=== PATIENT | female | born 1985 | race Caucasian/White ===

== ENCOUNTER 2016-12-27 05:40 | Day surgery (SDC) | payer MEDICAID ==
[2016-12-26 10:45] LABS: BASOPHILS 0.5 % (0-2); EOSINOPHILS 4.4 % (0-7); HEMATOCRIT 43.5 % (36.0-48.0); HEMOGLOBIN 15.5 g/dL (12-16); IMMATURE GRANULOCYTES 0.1 % (0-5); LYMPHOCYTES 37.1 % (15-50); MCHC 35.6 g/dL (31.0-37.0); MCV 95.4 fL (80.0-100.0); MEAN PLATELET VOLUME 10.7 fL (7.4-10.4); MONOCYTES 10.6 % (2-11); NEUTROPHILS 47.3 % (40-80); PLATELET COUNT 173 10x3/uL (130-400); RBC 4.56 10x6/uL (4.00-5.40); RDW 11.8 % (11.5-14.5); WBC 7.8 10x3/uL (4.8-10.8)
[2016-12-26 11:03] LABS: CALC OSMOLALITY 279 mosm/kg (275-300); CALCIUM 9.4 mg/dL (8.5-10.1); CARBON DIOXIDE 26.9 mmol/L (21.0-32.0); CHLORIDE - SERUM 107 mmol/L (98-107); CREATININE - SERUM 0.9 mg/dL (0.6-1.3); GLUCOSE 102 mg/dL (74-106); POTASSIUM - SERUM 4.5 mmol/L (3.5-5.1); SODIUM 141 mmol/L (136-145); UREA NITROGEN 11 mg/dL (7-18); eGFR NON AFRICAN AMERICAN 78 mL/min (90-120)
[~2016-12-27] VITALS: Ht 167.6 cm; Wt 63.5 kg
--- NOTE | ~2016-12-27 | OP ---
PATIENT NAME: SAHIL FLORES MEDICAL RECORD: [id number] :86 LOCATION:D.OPS ADMISSION DATE: SURGEON: DAY WRIGHT MD DATE OF OPERATION: 12/27/2016 PREOPERATIVE DIAGNOSIS: High-grade cervical dysplasia. POSTOPERATIVE DIAGNOSIS: High-grade cervical dysplasia. PROCEDURE: Loop electrosurgical excision procedure. SURGEON: Day Wright MD. ANESTHESIA: General by LMA. INTRAVENOUS FLUIDS: Per anesthesia records. ESTIMATED BLOOD LOSS: Minimal. FINDINGS: 1. Grossly normal-appearing cervix. 2. Grossly normal-appearing external genitalia. SPECIMENS: Include cervical cone biopsy. PROCEDURE IN DETAIL: The patient was taken to the operating room where general anesthesia was achieved without difficulty. The patient was then prepped and draped in normal sterile fashion in the dorsal lithotomy position in the [facility]. After prepping the vagina, a red rubber catheter was used to drain approximately 20 cc of clear straw-colored urine from the bladder. At this point, an insulated speculum was placed in the vagina and the cervix was identified with ease. A loop electrode was used to remove approximately 1 cm cone biopsy from the cervix at the level of the transitional zone. The cervical crater was then cauterized using the ball tip and the coagulation setting with good hemostasis noted. Monsel solution was then placed on the cervical crater. The speculum was then removed. The patient tolerated the procedure well, transferred to postanesthesia recovery stable without incident. TRANSINT:[id number] Voice Confirmation ID: [id number] DOCUMENT ID: [id number] DAY WRIGHT MD CC: [id number] DICTATION DATE: 12/29/1643 EXCAVATING MACHINE OPERATOR: 12/29/16 1332 [facility] 12/27/16 [facility] [address] [id number]
[~2016-12-27 05:40] MED LIST: EFFEXOR XR150 MG PO
[2016-12-27 06:10] VITALS: BP 114/59; Ht 167.6 cm; Wt 63.5 kg
[2016-12-27 06:45] LABS: HCG URINE NEGATIVE (NEGATIVE)
== END 2016-12-27 10:00 | disposition home or self-care (01) ==
LOC: D.OPS 05:40 → D.PAN 07:30 → D.OPS 10:00
PROVIDERS: Obstetrics & Gynecology
DX: D06.0 Carcinoma in situ of endocervix (principal); N72 Inflammatory disease of cervix uteri; N88.8 Other specified noninflammatory disorders of cervix uteri; Z01.812 Encounter for preprocedural laboratory examination; I47.1 Supraventricular tachycardia; F17.200 Nicotine dependence, unspecified, uncomplicated; F32.9 Major depressive disorder, single episode, unspecified

== ENCOUNTER 2017-05-16 05:26 | Day surgery (SDC) | payer MEDICAID ==
[2017-05-15 13:17] LABS: BASOPHILS 0.4 % (0-2); EOSINOPHILS 1.3 % (0-7); HEMATOCRIT 47.1 % (36.0-48.0); HEMOGLOBIN 16.4 g/dL (12-16); IMMATURE GRANULOCYTES 0.4 % (0-5); LYMPHOCYTES 27.7 % (15-50); MCH 33.8 pg (26.0-34.0); MCHC 34.8 g/dL (31.0-37.0); MCV 97.1 fL (80.0-100.0); MEAN PLATELET VOLUME 10.1 fL (7.4-10.4); NEUTROPHILS 63.2 % (40-80); RBC 4.85 10x6/uL (4.00-5.40); RDW 12.2 % (11.5-14.5); WBC 12.7 10x3/uL (4.8-10.8)
[2017-05-15 13:18] LABS: PLATELET COUNT 220 10x3/uL (130-400)
[~2017-05-16 05:26] MED LIST changes: +TOPAMAX25 MG PO; +ULTRAM50 MG PO
[2017-05-16 06:19] VITALS: BP 115/73; BMI 23.3
[2017-05-16 06:26] LABS: HCG URINE NEGATIVE (NEGATIVE)
--- NOTE | 2017-05-16 10:14 | NUR ---
IV DC WITH CATHER TIP INTACT
--- NOTE | 2017-05-16 23:42 | OP ---
PATIENT NAME: SAHIL FLORES MEDICAL RECORD: [id number] :86 LOCATION:D.[facility] ADMISSION DATE: SURGEON: HAYDEE MARVIN MD DATE OF OPERATION: 05/16/2017 PREOPERATIVE DIAGNOSIS: Subacute pelvic pain. POSTOPERATIVE DIAGNOSIS: Hemorrhagic cyst. SURGEON: Haydee Marvin MD ANESTHESIA: Dr. Jones. General anesthetic with endotracheal intubation. PROCEDURES: 1. Diagnostic laparoscopy. 2. Right cystectomy. FINDINGS: A 3-cm hemorrhagic cyst. Evidence of rupture with hemoperitoneum present. Abdominal anatomy and the rest of the pelvic anatomy is unremarkable. SPECIMENS REMOVED: Not applicable. ESTIMATED BLOOD LOSS: Less than or equal to 50 cc. FLUIDS: 800 cc of lactated Ringer's. URINE OUTPUT: Quantity sufficient with cath prior to procedure. COMPLICATIONS: None. DRAINS: None. INDICATIONS: The patient is a 32-year-old female, who presents to clinic with intense lower pelvic pain after being seen in the Emergency Room. The patient has a nonacute abdomen, cervical motion tenderness, and identified pelvic mass. The patient was taken to the operating room for diagnostic laparoscopy and any indicated procedure. DESCRIPTION OF PROCEDURE: After informed consent was assured, the patient was taken to the operating room, where anesthetic was obtained. She is supine on the table, prepped and draped in the usual sterile fashion after emptying her bladder. Incision was made at the umbilicus to accommodate a 5-mm trocar, which was inserted without difficulty and pneumoperitoneum was developed. Accessory ports were then placed in the right lower quadrant and midline. Through the midline port, a blunt probe was inserted. Retroverted uterus is now lifted and the hemoperitoneum is removed with suction deputy general counsel. Left ovary and right ovary were inspected. The right ovary was grasped at the hilum, elevated and using a Bovie cautery with a monopolar hook, the cyst was opened and cyst contents removed. The edges of the cystotomy were cauterized. After the pelvis was again irrigated and all irrigant removed, inspection of the ovary reveals adequate hemostasis. The pneumoperitoneum was released as the accessory trocars were removed. The primary trocar was now removed. The skin was reapproximated with subcuticular stitch and sterile dressing applied. The patient was sent to the recovery room in a stable and good condition. OPERATIVE REPORT [id number] SAHIL FLORES TRANSINT:[id number] Voice Confirmation ID: [id number] DOCUMENT ID: [id number] HAYDEE MARVIN MD at 2342 CC: [id number] DICTATION DATE: 05/16/17819 NURSE SUBSTANCE ABUSE: 05/16/17 1023 [facility] [place] 05/16/17 [place] [id number] [place] [id number]
== END 2017-05-16 10:20 | disposition home or self-care (01) ==
LOC: D.OPS 05:26 → D.PAN 07:30 → D.OPS 07:30
PROVIDERS: Obstetrics & Gynecology
DX: N83.201 Unspecified ovarian cyst, right side (principal); N85.4 Malposition of uterus; Z01.812 Encounter for preprocedural laboratory examination

== ENCOUNTER 2017-08-30 06:37 | Day surgery (SDC) | payer MEDICAID ==
[2017-08-29 11:45] LABS: BASOPHILS 0.2 % (0-2); EOSINOPHILS 2.6 % (0-7); HEMATOCRIT 45.6 % (36.0-48.0); HEMOGLOBIN 16.1 g/dL (12-16); IMMATURE GRANULOCYTES 0.2 % (0-5); LYMPHOCYTES 29.1 % (15-50); MCH 33.9 pg (26.0-34.0); MCHC 35.3 g/dL (31.0-37.0); MONOCYTES 6.6 % (2-11); NEUTROPHILS 61.3 % (40-80); PLATELET COUNT 207 10x3/uL (130-400); RBC 4.75 10x6/uL (4.00-5.40)
[2017-08-30] VITALS (8 sets, daily range): BP systolic 98–118; BP diastolic 51–65; Ht 167.6 cm; Wt 50.0 kg
[~2017-08-30] VITALS: Ht 167.6 cm; Wt 50.0 kg
--- NOTE | ~2017-08-30 | OP ---
PATIENT NAME: SAIHL FLORES MEDICAL RECORD: [id number] :86 LOCATION:D[facility] ADMISSION DATE: SURGEON: JORGE MARVIN MD DATE OF OPERATION: 08/30/2017 PREOPERATIVE DIAGNOSES: 1. Dysfunctional uterine bleeding. 2. Chronic pelvic pain, right side. 3. Secondary dysmenorrhea. 4. History of abnormal Pap smear. POSTOPERATIVE DIAGNOSES: 1. Dysfunctional uterine bleeding. 2. Chronic pelvic pain, right side. 3. Secondary dysmenorrhea. 4. History of abnormal Pap smear. PROCEDURE: Total laparoscopic hysterectomy with right salpingo-oophorectomy. SURGEON: Jorge Marvin MD. BREAD JOCKEY: Enrique Wright MD. RN CLINICAL RESEARCH: Nika Franco. ANESTHESIOLOGIST: Kenn Stokes MD. ANESTHESIA: General. FINDINGS: Uterus is slightly enlarged and boggy. Both the tubes were unremarkable. Right ovary has a 2-cm cyst. No obvious active endometriosis observed. What was visualized of the abdominal anatomy is unremarkable. SPECIMENS REMOVED: 1. Right ovary and tube. 2. Uterus with cervix. SPECIMEN DISPOSITION: Pathology. ESTIMATED BLOOD LOSS: Less or equal to 100 cc. FLUIDS: 900 cc lactated Ringer's. URINE OUTPUT: 100 cc of clear urine. COMPLICATIONS: None. DRAINS: Villalpando to gravity discontinued in the PACU. INDICATIONS: The patient is a 32-year-old parous female with history of abnormal Pap smears, irregular bleeding, failing conservative therapy, and chronic pain. The patient has been consented and understands the risks, benefits, and limitations of this procedure. The patient acknowledged all risks and agreed to proceed. OPERATIVE REPORT [id number] SAHIL FLORES DESCRIPTION OF PROCEDURE: After informed consent was assured, the patient was taken to the operating room where anesthetic was obtained without difficulty. The patient was prepped and draped in the usual sterile fashion. The patient having been placed in lithotomy position as speculum was introduced in the vagina and uterine manipulator was placed. Attention was now directed to the abdomen where an incision was made at the umbilicus to accommodate a 5-mm bladeless trocar. Pneumoperitoneum was developed. Accessory ports were placed in the right and left lower quadrants. Through the left quadrant a Harmonic scalpel was used to initiate the dissection medial to the left ovary. The dissection was carried down over the round ligament using gyrus coagulation cutter. The bladder flap was developed with Harmonic scalpel. Vessels on the left side are skeletonized, compressed, and coagulated. Attention was directed to the right side. Using the Gyrus coagulation cutter, the infundibulopelvic ligament was compressed, coagulated, and . The dissection was now carried down over the broad ligament and round ligament with the Harmonic scalpel. The bladder flap is now fully developed and the vessels on the right side skeletonized. Using the Gyrus coagulation cutter, the vessels were compressed, coagulated, and then . Using Harmonic scalpel, the initiation of the removal of the uterus from the vaginal cuff begins on the left. This dissection was carried from 6 o'clock to 10 o'clock position and then continues on the right side from 6 o'clock to 12 o'clock position with the remaining portion dissected free from the left. The uterus is now removed through the vagina and the legs were positioned for close. Pneumoperitoneum is maintained. All surgical aguilar are visualized with adequate hemostasis. Trocars were removed under direct visualization and the skin was reapproximated with a Monocryl stitch by the maintenance assistant by the vaginal cuff, it was completed. Using a 0 Vicryl stitch, the cuff is closed in a vertical fashion starting superiorly and working towards the uterosacral ligaments. The stitch is tied above the uterosacral ligaments and a second stitch was used. The uterosacral ligaments were plicated in the initial throw of the second stage and it is run from the uterosacral ligaments to the end of the posterior aspect of the cuff. The stitch is tied. Sponge, lap, and needle counts correct times 2 at the close of this procedure. TRANSINT:[id number] Voice Confirmation ID: [id number] DOCUMENT ID: [id number] JORGE MARVIN MD at 2039 CC: [id number] DICTATION DATE: 08/30/17 09 DEAN OF EDUCATION: 08/30/17 1048 [facility] 08/30/17 [facility] [address] [place] [address]
[~2017-08-30 06:37] MED LIST changes: -TOPAMAX25 MG PO; +TOPAMAX50 MG PO
[2017-08-30 06:42] LABS: HCG URINE NEGATIVE (NEGATIVE)
[2017-08-30] MEDS ORDERED: PERCOCET 5-3251 TAB PO (16:56)
[2017-08-30] MEDS ORDERED: IBUPROFEN800 MG PO (16:56)
== END 2017-08-30 17:39 | disposition home or self-care (01) ==
LOC: D.OPS 06:37 → D.PAN 07:30 → D.LD 10:16 → D.OPS 17:39
PROVIDERS: Obstetrics & Gynecology
DX: N93.8 Other specified abnormal uterine and vaginal bleeding (principal); N85.2 Hypertrophy of uterus; N83.01 Follicular cyst of right ovary; N83.11 Corpus luteum cyst of right ovary; N94.6 Dysmenorrhea, unspecified; Z01.812 Encounter for preprocedural laboratory examination

== ENCOUNTER 2017-11-23 10:00 | Emergency (ER) | payer MEDICAID ==
[2017-08-30 13:09] VITALS: BMI 17.8
[~2017-11-23 10:00] MED LIST changes: +IBUPROFEN800 MG PO; +PERCOCET 5-3251 TAB PO
[2017-11-23 11:23] LABS: BASOPHILS 0.6 % (0-2); HEMATOCRIT 40.2 % (36.0-48.0); HEMOGLOBIN 14.5 g/dL (12-16); IMMATURE GRANULOCYTES 0.1 % (0-5); LYMPHOCYTES 37.9 % (15-50); MCHC 36.1 g/dL (31.0-37.0); MCV 94.4 fL (80.0-100.0); MEAN PLATELET VOLUME 10.6 fL (7.4-10.4); MONOCYTES 7.7 % (2-11); NEUTROPHILS 51.7 % (40-80); PLATELET COUNT 173 10x3/uL (130-400); RBC 4.26 10x6/uL (4.00-5.40); RDW 12.5 % (11.5-14.5)
[2017-11-23 11:26] LABS: APPEARANCE CLEAR (CLEAR); BILIRUBIN NEGATIVE (NEGATIVE); COLOR YELLOW (YELLOW); GLUCOSE NEGATIVE (NEGATIVE); KETONE SMALL mg/dL (NEGATIVE); NITRITE NEGATIVE (NEGATIVE); PROTEIN NEGATIVE (NEGATIVE); SPECIFIC GRAVITY 1.025 (1.005-1.020); UROBILINOGEN NORMAL (NORMAL)
[2017-11-23 11:28] LABS: ALBUMIN 4.2 g/dL (3.4-5.0); ALKALINE PHOSPHATASE 30 U/L (46-116); ALT (SGPT) 25 U/L (10-68); BILIRUBIN - TOTAL 0.53 mg/dL (0.2-1.3); CALC OSMOLALITY 280 mosm/kg (275-300); CALCIUM 10.7 mg/dL (8.5-10.1); CARBON DIOXIDE 26.3 mmol/L (21.0-32.0); CHLORIDE - SERUM 107 mmol/L (98-107); CREATININE - SERUM 0.8 mg/dL (0.6-1.3); GLUCOSE 98 mg/dL (74-106); POTASSIUM - SERUM 4.5 mmol/L (3.5-5.1); PROTEIN - SERUM 7.5 g/dL (6.4-8.2); SODIUM 141 mmol/L (136-145); UREA NITROGEN 12 mg/dL (7-18); eGFR NON AFRICAN AMERICAN 89 mL/min (90-120)
== END 2017-11-23 14:02 | disposition home or self-care (01) ==
LOC: D.ER 10:00
PROVIDERS: Emergency Medicine
DX: R10.9 Unspecified abdominal pain (principal)

== ENCOUNTER 2017-12-27 06:35 | Day surgery (SDC) | payer MEDICAID ==
[2017-12-26 11:24] LABS: BASOPHILS 0.4 % (0-2); EOSINOPHILS 3.4 % (0-7); HEMATOCRIT 42.6 % (36.0-48.0); HEMOGLOBIN 15.3 g/dL (12-16); IMMATURE GRANULOCYTES 0.1 % (0-5); LYMPHOCYTES 35.2 % (15-50); MCH 33.9 pg (26.0-34.0); MCHC 35.9 g/dL (31.0-37.0); MCV 94.5 fL (80.0-100.0); MEAN PLATELET VOLUME 10.2 fL (7.4-10.4); MONOCYTES 7.9 % (2-11); PLATELET COUNT 181 10x3/uL (130-400); RBC 4.51 10x6/uL (4.00-5.40); RDW 12.7 % (11.5-14.5); WBC 8.2 10x3/uL (4.8-10.8)
[~2017-12-27] VITALS: Ht 167.6 cm; Wt 55.3 kg
--- NOTE | ~2017-12-27 | OP ---
PATIENT NAME: SAHIL FLORES MEDICAL RECORD: [id number] :86 LOCATION:D.OPS ADMISSION DATE: SURGEON: HAYDEE MARVIN MD DATE OF OPERATION: 12/27/2017 PREOPERATIVE DIAGNOSES: 1. Chronic pelvic pain. 2. History of left ovarian cyst. POSTOPERATIVE DIAGNOSES: 1. Chronic pelvic pain. 2. Left hemorrhagic cyst (less than or equal to 3 cm). 3. Endometriosis. 4. Mild pelvic adhesive disease. PROCEDURES: 1. Diagnostic laparoscopy. 2. Lysis of adhesions. 3. Left salpingo-oophorectomy. 4. Fulguration of endometriosis, left pelvic sidewall. SURGEON: Haydee Marvin MD ANESTHESIOLOGIST: Dr. Cesar ANESTHETIC: General. FINDINGS: Uterus and right ovary was absent. Omentum was adhesed to the left cul-de-sac and sidewall. Underneath these adhesions active endometriosis. Left ovary has multiple small cysts, the largest of which was approximately 2.5 cm. This was a hemorrhagic cyst. What was visualized of the abdominal anatomy was unremarkable. SPECIMENS REMOVED: Left ovary with tube and cyst. SPECIMEN DISPOSITION: Pathology. ESTIMATED BLOOD LOSS: Less than or equal to 50 cc. FLUIDS: 350 cc lactated Ringer's. URINE OUTPUT: Quantity sufficient void prior to the procedure. COMPLICATIONS: None. DRAINS: None. INDICATIONS: The patient is a 32-year-old female with history of dysmenorrhea and pelvic pain. The patient has had a hysterectomy and a right salpingo-oophorectomy for chronic right-sided pain. The patient has developed a 3-4 cm cyst that was identified in the Emergency Room. The patient was offered conservative management and again was given the option for Depo Lupron in the clinic. The risks and benefits of this treatment was described to her at length as well as the consequences of permanent removal of ovary. The patient acknowledged risks and benefits and the risk of hormone replacement therapy and OPERATIVE REPORT [id number] SAHIL FLORES wishes to proceed with LSO. DESCRIPTION OF PROCEDURE: After informed consent was assured, the patient was taken to the operating room where anesthetic was obtained without difficulty. The patient supine on the table and prepped and draped in the usual sterile fashion. An incision was made at the umbilicus to accommodate a 5-mm trocar, which was inserted without difficulty and pneumoperitoneum developed. With the patient in Trendelenburg position, accessory ports were now placed in the midline and right lower quadrants. The 10-12 port, which was placed in the midline as a blunt probe passed through here and the bowel swept free of the pelvis with the above findings. Using a Gyrus coagulation cutter, the adhesions were taken down with the instrument being placed from the right lower quadrant. After the adhesions were taken down, the endometriosis that was identified in the left sidewall of the cul-de-sac was cauterized. The ovary was now placed on traction to the midline and from the right side. The coagulation cutter was used to compress cauterized and separate the infundibulopelvic ligament and the attachments of the ovary and tube to the adnexa. After this has been removed, the ovary was placed in the cul-de-sac and an Endobag was inserted. The ovaries were removed in the Endopouch and the trocar removed. A single 0 Vicryl stitch was used to reapproximate the fascia in the midline. All skin sites were closed with 3-0 chromic. Sponge, lap and needle count was correct times 2. At the close of this procedure, the patient goes to the recovery room in stable condition. TRANSINT:[id number] Voice Confirmation ID: [id number] DOCUMENT ID: [id number] HAYDEE MARVIN MD at 0709 CC: [id number] DICTATION DATE: 12/27/17917 BEEHIVE KILN CHARCOAL BURNER: 12/27/17 1220 [facility] 12/27/17 [facility] [address] [place] [address]
[~2017-12-27 06:35] MED LIST changes: +CELEXA20 MG PO; +GABAPENTIN100 MG PO
[2017-12-27 07:32] VITALS: BP 93/46; Ht 167.6 cm; Wt 55.3 kg
== END 2017-12-27 11:50 | disposition home or self-care (01) ==
LOC: D.OPS 06:35 → D.PAN 08:00 → D.OPS 08:30
PROVIDERS: Obstetrics & Gynecology
DX: N83.02 Follicular cyst of left ovary (principal); N83.12 Corpus luteum cyst of left ovary; N80.3 Endometriosis of pelvic peritoneum; N73.6 Female pelvic peritoneal adhesions (postinfective); Z01.812 Encounter for preprocedural laboratory examination

== ENCOUNTER 2018-04-28 19:05 | Emergency (ER) | payer SELFPAY ==
[~2018-04-28] VITALS: Ht 167.6 cm; Wt 52.3 kg
[2018-04-28 19:10] VITALS: Ht 167.6 cm; Wt 52.3 kg
[2018-04-28 19:41] LABS: UDS - AMPHET POSITIVE QUAL (NEGATIVE); UDS - BARB NEGATIVE QUAL (NEGATIVE); UDS - BENZO POSITIVE QUAL (NEGATIVE); UDS - COCAINE NEGATIVE QUAL (NEGATIVE); UDS - OPIATE NEGATIVE QUAL (NEGATIVE); UDS - PCP NEGATIVE QUAL (NEGATIVE); UDS - THC POSITIVE QUAL (NEGATIVE)
[2018-04-28 19:47] LABS: APPEARANCE HAZY (CLEAR); BACTERIA FEW /hpf (NONE SEEN); BILIRUBIN NEGATIVE (NEGATIVE); COLOR YELLOW (YELLOW); EPITHELIAL CELLS 0-5 /hpf (0-5); GLUCOSE NEGATIVE (NEGATIVE); KETONE SMALL mg/dL (NEGATIVE); MUCUS >1+ /lpf (NONE SEEN); NITRITE NEGATIVE (NEGATIVE); PROTEIN 2+ mg/dL (NEGATIVE); UROBILINOGEN NORMAL (NORMAL); WHITE CELLS - URINE 25-50 /hpf (0-5)
[2018-04-28 19:48] LABS: GRANULAR CAST 0-5 /lpf (NONE SEEN)
[2018-04-28 20:00] LABS: BASOPHILS 0.4 % (0-2); EOSINOPHILS 2.4 % (0-7); HEMATOCRIT 40.8 % (36.0-48.0); HEMOGLOBIN 15.3 g/dL (12-16); IMMATURE GRANULOCYTES 0.3 % (0-5); LYMPHOCYTES 40.9 % (15-50); MCH 34.2 pg (26.0-34.0); MCHC 37.5 g/dL (31.0-37.0); MCV 91.1 fL (80.0-100.0); MEAN PLATELET VOLUME 9.9 fL (7.4-10.4); MONOCYTES 7.6 % (2-11); NEUTROPHILS 48.4 % (40-80); PLATELET COUNT 200 10x3/uL (130-400); RBC 4.48 10x6/uL (4.00-5.40); RDW 11.3 % (11.5-14.5); WBC 9.8 10x3/uL (4.8-10.8)
[2018-04-28 20:10] LABS: HCG SERUM NEGATIVE (NEGATIVE)
[2018-04-28 20:16] LABS: ALBUMIN 4.1 g/dL (3.4-5.0); ALKALINE PHOSPHATASE 34 U/L (46-116); ALT (SGPT) 27 U/L (10-68); BILIRUBIN - TOTAL 0.61 mg/dL (0.2-1.3); CALC OSMOLALITY 283 mosm/kg (275-300); CALCIUM 9.3 mg/dL (8.5-10.1); CARBON DIOXIDE 28.1 mmol/L (21.0-32.0); CHLORIDE - SERUM 103 mmol/L (98-107); CREATININE - SERUM 1.1 mg/dL (0.6-1.3); GLUCOSE 94 mg/dL (74-106); POTASSIUM - SERUM 3.7 mmol/L (3.5-5.1); PROTEIN - SERUM 7.4 g/dL (6.4-8.2); SODIUM 141 mmol/L (136-145); UREA NITROGEN 21 mg/dL (7-18); eGFR NON AFRICAN AMERICAN 61 mL/min (90-120)
[2018-04-28 20:26] LABS: CKMB 0.8 U/L (0.0-3.6); CREATINE KINASE 95 UL (21-215)
[2018-04-28 20:28] LABS: TROPONIN-I < 0.017 ng/mL (0.000-0.060)
[2018-04-28] MEDS ORDERED: ZOFRAN4 MG PO (20:53)
[2018-04-28 21:13] VITALS: BP 132/85
== END 2018-04-28 21:13 | disposition home or self-care (01) ==
LOC: D.ER 19:05
PROVIDERS: Family Medicine
DX: F15.10 Other stimulant abuse, uncomplicated (principal); I80.9 Phlebitis and thrombophlebitis of unspecified site; N39.0 Urinary tract infection, site not specified; F17.200 Nicotine dependence, unspecified, uncomplicated

== ENCOUNTER 2018-08-25 11:11 | Emergency (ER) | payer MEDICAID ==
[~2018-08-25] VITALS: Ht 167.6 cm; Wt 54.5 kg
[~2018-08-25 11:11] MED LIST changes: +ZOFRAN4 MG PO
[2018-08-25 11:17] VITALS: Ht 167.6 cm; Wt 54.5 kg
[2018-08-25] MEDS ORDERED: CLEOCIN HCL300 MG PO (11:39)
[2018-08-25 12:17] VITALS: BP 142/86
== END 2018-08-25 12:18 | disposition home or self-care (01) ==
LOC: D.ER 11:11
DX: I80.8 Phlebitis and thrombophlebitis of other sites (principal)

== ENCOUNTER 2019-02-25 11:04 | Emergency (ER) | payer MEDICAID ==
[~2019-02-25] VITALS: Ht 167.6 cm; Wt 54.5 kg
[~2019-02-25 11:04] MED LIST changes: +CLEOCIN HCL300 MG PO
[2019-02-25 11:09] VITALS: BP 134/85; Ht 167.6 cm; Wt 54.5 kg
[2019-02-25] MEDS ORDERED: EFFEXOR50 MG PO (11:09)
[2019-02-25] MEDS ORDERED: ESTRACE2 MG PO (11:10)
[2019-02-25] MEDS ORDERED: KLONOPIN1 MG PO (11:10)
--- NOTE | 2019-02-25 12:54 | NUR ---
DR. COLLAZO NOTIIFED AND REVIEWED PT'S BEHAVIOR AND ASSESSMENT RESULTS. PT IS A LOW RISK PER DR. COLLAZO. DR. COLLAZO STATED TO GIVE RESOURCES TO PT AT TIME OF DISCHARGE. NO FURTHER ORDERS AT THIS TIME. RESOURCES REVIEWED WITH PT AND SHE VERBALIZED UNDERSTANDING.
[2019-02-25 13:47] LABS: APPEARANCE CLEAR (CLEAR); BILIRUBIN NEGATIVE (NEGATIVE); COLOR STRAW (YELLOW); GLUCOSE NEGATIVE (NEGATIVE); KETONE NEGATIVE (NEGATIVE); NITRITE NEGATIVE (NEGATIVE); PROTEIN NEGATIVE (NEGATIVE); UROBILINOGEN NORMAL (NORMAL)
[2019-02-25 13:54] LABS: UDS - AMPHET POSITIVE QUAL (NEGATIVE); UDS - BARB NEGATIVE QUAL (NEGATIVE); UDS - BENZO NEGATIVE QUAL (NEGATIVE); UDS - COCAINE NEGATIVE QUAL (NEGATIVE); UDS - OPIATE NEGATIVE QUAL (NEGATIVE); UDS - PCP NEGATIVE QUAL (NEGATIVE); UDS - THC NEGATIVE QUAL (NEGATIVE)
== END 2019-02-25 14:27 | disposition home or self-care (01) ==
LOC: D.ER 11:04
PROVIDERS: Family Medicine
DX: T76.21XA Adult sexual abuse, suspected, initial encounter (principal); F15.90 Other stimulant use, unspecified, uncomplicated; F17.210 Nicotine dependence, cigarettes, uncomplicated